=== PATIENT | female | born 1995 | race African-American/Black ===

== ENCOUNTER 2020-06-09 18:31 | Inpatient (IN) | payer BC, MEDICAID ==
[~2020-06-09] VITALS: Ht 162.6 cm; Wt 69.6 kg
[2020-06-09] MEDS ORDERED: ASPIRIN 81MG TABLET PO ONE (21:15)
[2020-06-09 21:48] LABS: BASOPHILS % 0.7 % (0.0-2.0); EOSINOPHILS % 0.9 % (0.0-5.0); HEMOGLOBIN. 13.4 g/dL (12.0-16.0); LYMPHOCYTES % 29.3 % (20.0-50.0); MEAN CORPUSCULAR HEMOGLOBIN 30.8 pg (28.0-32.0); MEAN CORPUSCULAR VOLUME 89.4 fL (81.0-99.0); MEAN PLATELET VOLUME 10.4 fl (7.4-10.4); MONOCYTES % 7.5 % (2.0-8.0); NEUTROPHILS % 61.6 % (40.0-76.0); PLATELET 225 x1000/uL (130-400); RED BLOOD CELL COUNT 4.37 mill/uL (4.2-5.4); RED CELL DISTRIBUTION WIDTH 12.9 % (11.6-14.6)
[2020-06-09 21:53] LABS: CHLORIDE 106 mEq/L (98-107)
[2020-06-09 22:13] LABS: HCG SCREEN NEGATIVE
[2020-06-09 22:14] LABS: D-DIMER 0.33 mg/L FEU (<0.50); PARTIAL THROMBOPLASTIN TIME 32.9 sec (23.4-31.0); PROTHROMBIN TIME 10.9 sec (9.6-11.0)
[2020-06-10] VITALS (10 sets, daily range): BP systolic 89–130; BP diastolic 45–77
[2020-06-10] MEDS ORDERED: MORPHINE SULFATE 2 MG/ML CPJ (NOT FOR IM USE) IV PRN (05:50)
[2020-06-10] MEDS ORDERED: NITROGLYCERIN 0.4MG TABLET SL SL PRN (06:00)
[2020-06-10] MEDS ORDERED: DIPHENHYDRAMINE 50MG/ML VIAL IV PRN (11:15)
[2020-06-10] MEDS ORDERED: LORAZEPAM 0.5MG TABLET PO PRN (11:15)
[2020-06-10] MEDS ORDERED: ONDANSETRON HCL 4MG/2ML INJ IV PRN (11:15)
[2020-06-10] MEDS ORDERED: ATROPINE SULFATE 1MG/10ML SYR IV PRN (11:15)
[2020-06-10] MEDS ORDERED: ACETAMINOPHEN 325MG TABLET PO PRN (11:15)
[2020-06-10] MEDS ORDERED: ACETAMINOPHEN 650MG SUPP PR PRN (11:15)
[2020-06-10] MEDS ORDERED: GUAIFENESIN 200MG/10ML SUGAR FREE UDC PO PRN (11:15)
[2020-06-10] MEDS ORDERED: HYDROCODONE/ACETAMINOPHEN 5/325MG TABLET PO PRN (11:15)
[2020-06-10] MEDS ORDERED: DOCUSATE SODIUM 100MG CAPSULE PO PRN (11:15)
[2020-06-10] MEDS ORDERED: NA PHOS,M-B/NA PHOS,DI-BA ENEMA 118ML PR PRN (11:15)
[2020-06-10] MEDS ORDERED: IPRATROPIUM/ALBUTEROL 0.5-3(2.5)MG/3ML NEB NEB PRN (11:15)
[2020-06-10] MEDS: ENOXAPARIN 40MG/0.4ML SYR SUBCUT SCH (11:30)
[2020-06-10 11:52] LABS: BASOPHILS % 0.5 % (0.0-2.0); EOSINOPHILS % 0.8 % (0.0-5.0); HEMATOCRIT. 38.4 % (36.0-48.0); LYMPHOCYTES % 30.8 % (20.0-50.0); MEAN CORPUSCULAR HEMOGLOBIN 30.4 pg (28.0-32.0); MEAN PLATELET VOLUME 10.1 fl (7.4-10.4); MONOCYTES % 6.6 % (2.0-8.0); NEUTROPHILS % 61.3 % (40.0-76.0); PLATELET 211 x1000/uL (130-400); RED BLOOD CELL COUNT 4.27 mill/uL (4.2-5.4)
[2020-06-10 12:01] LABS: CHLORIDE 108 mEq/L (98-107)
[2020-06-10 14:54] LABS: CLARITY URINE CLEAR (CLEAR); COLOR URINE YELLOW (YELLOW); KETONES URINE TRACE (NEGATIVE); LEUKOCYTE ESTERASE URINE 1+ (NEGATIVE); NITRITE URINE NEGATIVE (NEGATIVE); OCCULT BLOOD URINE NEGATIVE (NEGATIVE); PROTEIN URINE NEGATIVE (NEGATIVE)
[2020-06-10 15:22] LABS: *AMPHETAMINES SCREEN URINE NEGATIVE (NEGATIVE); *BARBITURATES SCREEN URINE NEGATIVE (NEGATIVE); *BENZODIAZEPINES SCREEN URINE NEGATIVE (NEGATIVE); *COCAINE SCREEN URINE NEGATIVE (NEGATIVE); METHADONE URINE SCREEN NEGATIVE (NEGATIVE)
[2020-06-10 15:23] LABS: PHENCYCLIDINE URINE SCREEN NEGATIVE (NEGATIVE)
[2020-06-10 15:30] LABS: OPIATES URINE SCREEN PRESUMTIVE POSITIVE (NEGATIVE)
[2020-06-10 15:31] LABS: CANNABINOID URINE SCREEN PRESUMTIVE POSITIVE (NEGATIVE)
[2020-06-10 16:08] LABS: CREATINE KINASE 88 IU/L (26-192); CREATINE KINASE MB FRACTION < 1.0 ng/mL (0.5-3.6)
[2020-06-10] MEDS ORDERED: FAMOTIDINE 20MG TABLET PO SCH (21:00)
[2020-06-10 23:18] LABS: CREATINE KINASE 75 IU/L (26-192)
[2020-06-10 23:19] LABS: CREATINE KINASE MB FRACTION < 1.0 ng/mL (0.5-3.6)
[2020-06-11] VITALS (10 sets, daily range): BP systolic 92–131; BP diastolic 45–73
[2020-06-11 07:09] LABS: CHLORIDE 106 mEq/L (98-107)
[2020-06-11 07:15] LABS: BASOPHILS % 0.5 % (0.0-2.0); EOSINOPHILS % 0.9 % (0.0-5.0); HEMOGLOBIN. 12.8 g/dL (12.0-16.0); LYMPHOCYTES % 22.4 % (20.0-50.0); MEAN CORPUSCULAR HEMOGLOBIN 30.8 pg (28.0-32.0); MEAN CORPUSCULAR VOLUME 88.7 fL (81.0-99.0); MEAN PLATELET VOLUME 10.5 fl (7.4-10.4); MONOCYTES % 7.1 % (2.0-8.0); NEUTROPHILS % 69.1 % (40.0-76.0); PLATELET 190 x1000/uL (130-400); RED BLOOD CELL COUNT 4.17 mill/uL (4.2-5.4); RED CELL DISTRIBUTION WIDTH 12.8 % (11.6-14.6)
[2020-06-11 07:20] LABS: HDL CHOLESTEROL 42 mg/dL (40-59); LDL CHOLESTEROL 99 mg/dL (5-100); T4 FREE 1.29 ng/dL (0.76-1.46)
[2020-06-11] MEDS ORDERED: ASPIRIN 81MG EC TABLET PO SCH (09:00)
[2020-06-11] MEDS ORDERED: REGADENOSON 0.4 MG/5 ML IV NR (10:45)
[2020-06-11] MEDS: ENOXAPARIN 40MG/0.4ML SYR SUBCUT SCH (11:30)
[2020-06-11] MEDS ORDERED: REGADENOSON 0.4 MG/5 ML IV ONE (11:39)
== END 2020-06-11 14:12 | disposition home or self-care (01) | DRG 313 ==
LOC: ER 18:47 → 3WST 06-10 03:30 → ENRESERV 06-10 08:35 → ER 06-10 10:16
PROVIDERS: ADMIT Internal Medicine; ATTEND Internal Medicine
DX: R07.9 Chest pain, unspecified (principal); R00.1 Bradycardia, unspecified; E66.9 Obesity, unspecified; F17.210 Nicotine dependence, cigarettes, uncomplicated; G47.30 Sleep apnea, unspecified; J45.909 Unspecified asthma, uncomplicated; R94.31 Abnormal electrocardiogram [ECG] [EKG]; H53.8 Other visual disturbances; F10.10 Alcohol abuse, uncomplicated; Y90.9 Presence of alcohol in blood, level not specified; F12.10 Cannabis abuse, uncomplicated; G89.29 Other chronic pain
CPT/HCPCS: 36415; 71045; 78452; 78582; 80053; 80061; 80305; 81003; 82550; 82553; 83036; 84439; 84443; 84484; 84703; 85025; 85379; 93005; 93017; 93306; 93970; 96374; 99285; A9500; A9558; J2270; J2785

== ENCOUNTER 2020-08-15 17:09 | Emergency (ER) | payer BC, MEDICAID ==
[~2020-08-15] VITALS: Ht 162.6 cm; Wt 73.0 kg
[2020-08-15 17:11] VITALS: BP 119/83
== END 2020-08-15 18:09 | disposition left against medical advice (07) ==
LOC: ER 17:09
DX: R07.89 Other chest pain (principal); Z53.21 Procedure and treatment not carried out due to patient leaving prior to being seen by health care provider

== ENCOUNTER 2020-10-28 12:09 | Emergency (ER) | payer BC, MEDICAID ==
[~2020-10-28] VITALS: Ht 160 cm; Wt 72.0 kg
[2020-10-28] MEDS ORDERED: ALBUTEROL (0.083%) 2.5MG/3ML NEB HHN STA (12:51)
[2020-10-28] MEDS ORDERED: IPRATROPIUM BROMIDE (0.02%) 0.5MG/2.5ML NEB HHN STA (12:51)
[2020-10-28] MEDS ORDERED: PREDNISONE 20MG TABLET PO ONE (13:00)
[2020-10-28 14:28] VITALS: BP 127/74
== END 2020-10-28 14:29 | disposition home or self-care (01) ==
LOC: ER 12:09
DX: J45.901 Unspecified asthma with (acute) exacerbation (principal); F12.10 Cannabis abuse, uncomplicated; F17.200 Nicotine dependence, unspecified, uncomplicated
CPT/HCPCS: 94640; 99283; J7512; Z7610

== ENCOUNTER 2020-11-15 09:32 | Emergency (ER) | payer BC, MEDICAID ==
[~2020-11-15] VITALS: Ht 162.6 cm; Wt 73.0 kg
[2020-11-15] MEDS ORDERED: TRAMADOL 50MG TABLET PO ONE (10:15)
[2020-11-15 10:34] VITALS: BP 114/68
== END 2020-11-15 10:52 | disposition home or self-care (01) ==
LOC: ER 09:54
DX: H66.92 Otitis media, unspecified, left ear (principal); J45.909 Unspecified asthma, uncomplicated; F12.10 Cannabis abuse, uncomplicated
CPT/HCPCS: 99283

== ENCOUNTER 2021-09-01 12:52 | Emergency (ER) | payer BC, MEDICAID ==
[~2021-09-01] VITALS: Ht 162.6 cm; Wt 57.0 kg
[2021-09-01 14:33] LABS: CLARITY URINE CLOUDY (CLEAR); COLOR URINE YELLOW (YELLOW); KETONES URINE NEGATIVE (NEGATIVE); LEUKOCYTE ESTERASE URINE 3+ (NEGATIVE); NITRITE URINE NEGATIVE (NEGATIVE); OCCULT BLOOD URINE NEGATIVE (NEGATIVE); PROTEIN URINE NEGATIVE (NEGATIVE); UROBILINOGEN URINE 0.2 E.U./dL (0.2-1.0)
[2021-09-01] MEDS ORDERED: NITR-87 MT (15:10)
[2021-09-01] MEDS ORDERED: FLUCONAZOLE 150MG TABLET PO ONE (15:15)
[2021-09-01] MEDS ORDERED: FLUCONAZOLE 50MG TABLET PO ONE (15:15)
[2021-09-01 15:44] VITALS: BP 103/79
== END 2021-09-01 15:45 | disposition home or self-care (01) ==
LOC: ER 12:52
DX: N39.0 Urinary tract infection, site not specified (principal); F12.10 Cannabis abuse, uncomplicated; J45.909 Unspecified asthma, uncomplicated
CPT/HCPCS: 81003; 81025; 87106; 87210; 99283

== ENCOUNTER 2023-04-30 17:20 | Emergency (ER) | payer MEDICAID ==
[~2023-04-30] VITALS: Ht 162.6 cm; Wt 65.8 kg
[~2023-04-30 17:20] MED LIST: NITR-87 MT
[2023-04-30 19:15] VITALS: BP 99/56
[2023-04-30] MEDS ORDERED: KETOROLAC 60MG/2ML VIAL IM ONE (19:15)
[2023-04-30] MEDS ORDERED: CYCL10TA21 MT (19:56)
[2023-04-30] MEDS ORDERED: IBUP-2029 MT (19:56)
== END 2023-04-30 20:25 | disposition home or self-care (01) ==
LOC: ER 17:20
DX: M54.42 Lumbago with sciatica, left side (principal); J45.909 Unspecified asthma, uncomplicated; F12.10 Cannabis abuse, uncomplicated
CPT/HCPCS: 72131; 81025; 96372; 99285; J1885

== ENCOUNTER 2023-05-20 10:12 | Emergency (ER) | payer MEDICAID ==
[~2023-05-20] VITALS: Ht 162.6 cm; Wt 59.1 kg
[~2023-05-20 10:12] MED LIST changes: +CYCL10TA21 MT; +IBUP-2029 MT
[2023-05-20 10:23] VITALS: BP 104/79; TEMP 98.3; O2SAT 100
[2023-05-20 10:24] VITALS: PULSE 89; RESP 16
[2023-05-20 11:04] LABS: BASOPHILS % 0.4 % (0.0-2.0); EOSINOPHILS % 1.6 % (0.0-5.0); HEMATOCRIT. 39.9 % (36.0-48.0); HEMOGLOBIN. 13.7 g/dL (12.0-16.0); LYMPHOCYTES % 26.8 % (20.0-50.0); MEAN CORPUSCULAR HEMOGLOBIN 31.8 pg (28.0-32.0); MEAN CORPUSCULAR VOLUME 92.5 fL (81.0-99.0); MEAN PLATELET VOLUME 9.7 fl (7.4-10.4); MONOCYTES % 7.2 % (2.0-8.0); PLATELET 256 x1000/uL (130-400); RED BLOOD CELL COUNT 4.31 mill/uL (4.2-5.4); RED CELL DISTRIBUTION WIDTH 13.5 % (11.6-14.6)
[2023-05-20 11:13] LABS: CHLORIDE 110 mEq/L (98-107)
[2023-05-20 12:14] LABS: CLARITY URINE CLEAR (CLEAR); COLOR URINE YELLOW (YELLOW); KETONES URINE NEGATIVE (NEGATIVE); LEUKOCYTE ESTERASE URINE 2+ (NEGATIVE); NITRITE URINE NEGATIVE (NEGATIVE); OCCULT BLOOD URINE NEGATIVE (NEGATIVE); PH URINE 5.5 (4.5-8.0); PROTEIN URINE NEGATIVE (NEGATIVE); SPECIFIC GRAVITY URINE 1.018 (1.005-1.030); UROBILINOGEN URINE 0.2 E.U./dL (0.2-1.0)
[2023-05-20] MEDS ORDERED: ALBU6.7H3 INH (13:18)
[2023-05-20] MEDS ORDERED: MONT-46 MT (13:18)
[2023-05-20] MEDS ORDERED: MICO45CR16 VG (13:18)
[2023-05-20] MEDS ORDERED: DIF15 MT (13:26)
== END 2023-05-20 13:45 | disposition home or self-care (01) ==
LOC: ER 10:12
DX: S29.011A Strain of muscle and tendon of front wall of thorax, initial encounter (principal); B37.31 Acute candidiasis of vulva and vagina; F12.10 Cannabis abuse, uncomplicated; J45.909 Unspecified asthma, uncomplicated; X58.XXXA Exposure to other specified factors, initial encounter; Y93.89 Activity, other specified; Y92.89 Other specified places as the place of occurrence of the external cause; Y99.8 Other external cause status
CPT/HCPCS: 36415; 71045; 80053; 81003; 81025; 85025; 93005; 99285

== ENCOUNTER 2024-01-08 00:57 | Emergency (ER) | payer MEDICAID ==
[~2024-01-08] VITALS: Ht 160 cm; Wt 63.0 kg
[~2024-01-08 00:57] MED LIST changes: +ALBU6.7H3 INH; +DIF15 MT; +MICO45CR16 VG; +MONT-46 MT
[2024-01-08 01:14] VITALS: TEMP 97.9; O2SAT 98
[2024-01-08] MEDS: ACETAMINOPHEN 325MG TABLET PO STA (03:06)
[2024-01-08] MEDS: TETANUS, DIPHTHERIA, PERTUSSIS VAC/PF 0.5ML (>10YR OLD) IM ONE (03:06)
[2024-01-08 06:03] VITALS: BP 104/68; PULSE 80; RESP 16
== END 2024-01-08 06:04 | disposition home or self-care (01) ==
LOC: ER 01:05
DX: S01.81XA Laceration without foreign body of other part of head, initial encounter (principal); J45.909 Unspecified asthma, uncomplicated; F12.10 Cannabis abuse, uncomplicated; Z79.899 Other long term (current) drug therapy; X58.XXXA Exposure to other specified factors, initial encounter; Y93.89 Activity, other specified; Y92.89 Other specified places as the place of occurrence of the external cause; Y99.8 Other external cause status
CPT/HCPCS: 70450; 90715; 90471; 99285; Z7610

== ENCOUNTER 2024-01-16 13:25 | Emergency (ER) | payer MEDICAID ==
[~2024-01-16] VITALS: Ht 160 cm; Wt 53.5 kg
[2024-01-16] MEDS ORDERED: NAPR220C61 MT (14:14)
[2024-01-16 14:30] VITALS: BP 138/78; PULSE 82; RESP 16; TEMP 98.2
== END 2024-01-16 14:45 | disposition home or self-care (01) ==
LOC: ER 13:25
DX: S01.81XD Laceration without foreign body of other part of head, subsequent encounter (principal); J45.909 Unspecified asthma, uncomplicated; F12.10 Cannabis abuse, uncomplicated; X58.XXXD Exposure to other specified factors, subsequent encounter
CPT/HCPCS: 99281; 99282

== ENCOUNTER 2024-09-24 10:44 | Emergency (ER) | payer MEDICAID ==
[~2024-09-24] VITALS: Ht 162.6 cm; Wt 64.0 kg
[~2024-09-24 10:44] MED LIST changes: +NAPR220C61 MT
[2024-09-24 10:59] VITALS: O2SAT 100
[2024-09-24 14:11] LABS: CLARITY URINE CLEAR (CLEAR); COLOR URINE YELLOW (YELLOW); GLUCOSE URINE NEGATIVE (NEGATIVE); KETONES URINE TRACE (NEGATIVE); LEUKOCYTE ESTERASE URINE 2+ (NEGATIVE); NITRITE URINE NEGATIVE (NEGATIVE); OCCULT BLOOD URINE NEGATIVE (NEGATIVE); PH URINE 6.5 (4.5-8.0); PROTEIN URINE 1+ (NEGATIVE); SPECIFIC GRAVITY URINE 1.021 (1.005-1.030)
[2024-09-24] MEDS ORDERED: DOXY100C5 MT (14:29)
[2024-09-24 14:32] LABS: BACTERIA URINE 2+; RBC URINE 0-2 /hpf (0-2); SQUAMOUS EPITHELIAL CELL URINE 2+ /lpf (RARE/1+); WBC URINE 15-25 /hpf (0-2); YEAST URINE NONE SEEN
[2024-09-24] MEDS: LIDOCAINE HCL/PF 1% 10 MG/ML 5ML VIAL INFIL ONE (14:59)
[2024-09-24] MEDS: CEFTRIAXONE SODIUM 500MG VIAL IM ONE (14:59)
[2024-09-24 15:37] VITALS: BP 116/64; PULSE 60; RESP 16; TEMP 37.00296; O2SAT 99
[2024-09-27 04:10] LABS: CHLAMYDIA TRACHOMATIS NAA Negative (Negative); NEISSERIA GONORRHOEAE NAA Negative (Negative)
== END 2024-09-24 15:39 | disposition home or self-care (01) ==
LOC: ER 11:22
DX: N89.8 Other specified noninflammatory disorders of vagina (principal); J45.909 Unspecified asthma, uncomplicated; Z20.2 Contact with and (suspected) exposure to infections with a predominantly sexual mode of transmission; Z11.3 Encounter for screening for infections with a predominantly sexual mode of transmission; Z79.899 Other long term (current) drug therapy; Z82.49 Family history of ischemic heart disease and other diseases of the circulatory system
CPT/HCPCS: 99283; 87491; 87591; 81003; 87086; 96372; J0696; J3490